=== PATIENT | male | born 1945 | race Caucasian/White ===

== ENCOUNTER → 2016-08-16 | Outpatient (CLI) | payer MEDICARE, BC ==
--- NOTE | 2016-08-17 07:25 | XR ---
EXAMINATION TYPE: XR Hip Complete RT DATE OF EXAM ORDERED: 08/16/2016 3:50 PM HISTORY: [id number] rt hip pain. COMPARISON: None. FINDINGS: A right hip arthroplasty is in place. Prosthetic elements appear in good position. No frac ture, dislocation or other acute abnormality is seen. IMPRESSION: STATUS POST RIGHT HIP ARTHROPLASTY.
== END | disposition home or self-care (01) ==
LOC: RADXRYALE 15:32
PROVIDERS: ATTEND Physician Assistant Medical
DX: M25.551 Pain in right hip (principal); Z96.641 Presence of right artificial hip joint
CPT/HCPCS: 73502

== ENCOUNTER → 2016-11-07 | Outpatient (CLI) | payer MEDICARE, BC ==
--- NOTE | 2016-11-07 11:06 | XR ---
EXAMINATION TYPE: XR Hip Complete RT DATE OF EXAM: 11/07/2016 COMPARISON: 08/16/2016 HISTORY: 71-year-old male with right hip pain TECHNIQUE: 2 views FINDINGS: Images show a right hip total arthroplasty. Both acetabular cup and femoral short stem components of the prosthesis appear well seated without periprosthetic fracture. Similar cortical violation of the medial pelvic sidewall by the inferior acetabular cup screw with tip projecting 1 cm beyond the inner pelvic cortex. Alignment is grossly anatomic. Small heterotopic ossification about the greater troch anter measuring 1 cm. IMPRESSION: Stable exam. No evidence of loosening or periprosthetic fracture. Acetabular cup screw as described ramu sloan.
== END | disposition home or self-care (01) ==
LOC: RADXRYALE 09:49
PROVIDERS: ATTEND Family Medicine
DX: M25.551 Pain in right hip (principal)
CPT/HCPCS: 73502

== ENCOUNTER → 2017-10-01 | Outpatient (CLI) | payer MEDICARE ==
--- NOTE | 2017-10-01 11:31 | XR ---
EXAMINATION TYPE: XR knee complete bilateral DATE OF EXAM: 10/01/2017 CLINICAL HISTORY: Bilateral chronic knee pain TECHNIQUE: Three views of the bilateral knees are obtained. COMPARISON: None. FINDINGS: There is no acute fracture/dislocation evident in either knee. There is fairly symmetric m ild to moderate tricompartment joint space loss with mild spurring patellofemoral compartments bilate rally. The overlying soft tissue appears unremarkable bilaterally. IMPRESSION: As above.
== END | disposition home or self-care (01) ==
LOC: RADXRYALE 10:36
PROVIDERS: ATTEND Family Medicine
DX: M25.561 Pain in right knee (principal); M25.562 Pain in left knee

== ENCOUNTER 2018-11-03 16:50 | Inpatient (IN) | payer MEDICARE ==
[2018-11-03 17:34] LABS: Basophils # (A) 0.1 k/uL (0-0.2); Basophils % (A) 0 %; Eosinophils # (A) 0.3 k/uL (0-0.7); Eosinophils % (A) 2 %; HCT 41.6 % (39.0-53.0); HGB 13.8 gm/dL (13.0-17.5); Lymphocytes # (A) 1.2 k/uL (1.0-4.8); Lymphocytes % (A) 7 %; MCH 30.4 pg (25.0-35.0); MCHC 33.2 g/dL (31.0-37.0); MCV 91.5 fL (80.0-100.0); Mean Platelet Volume 7.4; Monocytes # (A) 0.9 k/uL (0-1.0); Monocytes % (A) 6 %; Neutrophils # (A) 13.7 k/uL (1.3-7.7); Neutrophils % (A) 85 %; Platelet Count 171 k/uL (150-450); RBC 4.54 m/uL (4.30-5.90); RDW 14.8 % (11.5-15.5); WBC 16.2 k/uL (3.8-10.6)
[2018-11-03 17:39] LABS: ALT <6 U/L (21-72); AST 20 U/L (17-59); African American GFR (CKD) 86 (>60 ml/min/1.73 sqM); Albumin 3.9 g/dL (3.5-5.0); Alkaline Phosphatase 66 U/L (38-126); Anion Gap 11 mmol/L; Bilirubin, Delta 0.1 mg/dL (0.0-0.2); Bilirubin,Unconjugated 1.1 mg/dL (0.0-1.1); Blood Urea Nitrogen 36 mg/dL (9-20); Calcium 8.9 mg/dL (8.4-10.2); Carbon Dioxide 24 mmol/L (22-30); Chloride 100 mmol/L (98-107); Glucose 186 mg/dL (74-99); Potassium 4.4 mmol/L (3.5-5.1); Sodium 135 mmol/L (137-145); Total Bilirubin 1.2 mg/dL (0.2-1.3); Total Protein 6.6 g/dL (6.3-8.2)
--- NOTE | 2018-11-03 17:42 | ED ---
Fever HPI - General Chief Complaint: Fever Stated Complaint: Confused, Poss UTI Time Seen by Provider: 11/03/18 17:18 Source: patient Mode of arrival: wheelchair Limitations: altered mental status, physical limitation - History of Present Illness Initial Comments: 73-year-old male being brought in by his caregiver with a chief complaint of generalized weakness and altered mental status. Caregiver states he has a history of Parkinson's and dementia, but today he has become generally weak and it took them 3 hours to get him out of his bed. They took him to his primary care physician's office who did a UA, and diagnosed him with a UTI. They state that he's been complaining of some right flank pain but otherwise has denied any pain. Patient is a history of right-sided weakness that has not worsened recently. He denies any complaints of chest pain or shortness of breath. They deny any falls. - Related Data Home Medications Medication Instructions Recorded Confirmed Apixaban [Eliquis] 5 mg PO BID@0800,1700 11/03/18 11/03/18 Carbidopa/Levodopa [Sinemet CR 1 tab PO TID@0800,1200,1700 11/03/18 11/03/18 50-200 mg] Cetirizine HCl [Zyrtec] 10 mg PO HS@1700 11/03/18 11/03/18 Donepezil [Aricept] 10 mg PO DAILY@1200 11/03/18 11/03/18 Glucosam/Yan-Msm1/C/Calvin/Bosw 1 tab PO DAILY@1200 11/03/18 11/03/18 [Glucosamine-Chondroitin Tablet] Lisinopril-Hctz 20-25 mg 0.5 tab PO DAILY@0800 11/03/18 11/03/18 [Zestoretic 20-25] Multivitamins, Thera [Multivitamin 1 tab PO HS@1700 11/03/18 11/03/18 (formulary)] metFORMIN HCL [Glucophage] 250 mg PO DAILY@0811/03/18 11/03/18 Allergies Allergy/AdvReac Type Severity Reaction Status Date / Time No Known Allergies Allergy Verified 11/03/18 18:03 Review of Systems ROS Statement: Those systems with pertinent positive or pertinent negative responses have been documented in the HPI. Review of Systems Constitutional: Denies fever, chills Eyes: Denies change in vision, Denies pain Ears, nose, mouth, throat: Denies headaches, Denies sore throat Cardiovascular: Denies chest pain. Denies palpitations Respiratory: Denies shortness of breath, Denies cough Gastrointestinal: Denies abdominal pain. Denies nausea, vomiting, diarrhea. Genitourinary: Denies hematuria, positive infections Musculoskeletal: Denies pain, Denies swelling Integumentary: Denies rash Neurological: Denies headache, focal weakness, focal numbness. Positive confu jonna Psychiatric: Denies anxiety, Denies depression Hematologic/Lymphatic: Denies easy bleeding or bruising ROS Other: All systems not noted in ROS Statement are negative. Past Medical History Past Medical History: CVA/TIA, Dementia, Diabetes Mellitus, Hypertension Additional Past Medical History / Comment(s): parkinsons History of Any Multi-Drug Resistant Organisms: None Reported Past Surgical History: Joint Replacement, Pacemaker Additional Past Surgical History / Comment(s): right hip Past Psychological History: No Psychological Hx Reported Smoking Status: Former smoker Past Alcohol Use History: None Reported Past Drug Use History: None Reported General Exam - General Exam Comments Initial Comments: General: Awake, alert, No acute Distress HENT: Normocephalic. Atraumatic Eyes: PERRL. EOMI. No scleral icterus. No injected conjunctiva Neck: Full ROM Chest/Lungs: Clear to auscultation bilaterally. No wheezing, rhonchi, or rales Cardiac: Regular rate, rhythm. No murmurs or rubs Abdomen/GI: Soft, nontender, nondistended. No rebound, guarding, or rigidity. Musculoskeletal: Full ROM Skin: Warm, dry, intact Neurologic: A/Ox2. Moving all 4 extremities. Right sided weakness (chronic.) Unable to assess gait. Limitations: altered mental status, physical limitation Course Vital Signs 11/03/18 16:55 Temperature 99.2 F Pulse Rate 60 Respiratory 18 Rate Blood Pressure 120/63 O2 Sat by Pulse 97 Oximetry Medical Decision Making - Medical Decision Making 73-year-old male presenting with altered mental status and possible UTI. Initial exam the patient is awake, alert, no acute distress. VSS. Patient found to have a leukocytosis and a UTI. A culture was sent and he was given Rocephin. A CT abdomen and pelvis showed fat stranding around bilateral kidneys suggesting pyelonephritis. Patient also found to have a lactic acidosis. He was given a 1 L IV fluid bolus and placed on maintenance fluid. The remainder of his laboratory workup unremarkable. I spoke with Dr. Domínguez who is agreeable to admission. I updated the caregiver. Patient eats normal foods but does require assistance. EKG shows an atrial paced rhythm at a rate of 60 bpm. - Lab Data Result diagrams: 11/03/18 17:20 11/03/18 17:20 Lab Results 11/03/18 11/03/18 11/03/18 Range/Units 17:20 17:20 17:20 WBC 16.2 H (3.8-10.6) k/uL RBC 4.54 (4.30-5.90) m/uL Hgb 13.8 (13.0-17.5) gm/dL Hct 41.6 (39.0-53.0) % MCV 91.5 (80.0-100.0) fL MCH 30.4 (25.0-35.0) pg MCHC 33.2 (31.0-37.0) g/dL RDW 14.8 (11.5-15.5) % Plt Count 171 (150-450) k/uL Neutrophils % 85 % Lymphocytes % 7 % Monocytes % 6 % Eosinophils % 2 % Basophils % 0 % Neutrophils # 13.7 H (1.3-7.7) k/uL Lymphocytes # 1.2 (1.0-4.8) k/uL Monocytes # 0.9 (0-1.0) k/uL Eosinophils # 0.3 (0-0.7) k/uL Basophils # 0.1 (0-0.2) k/uL Sodium 135 L (137-145) mmol/L Potassium 4.4 (3.5-5.1) mmol/L Chloride 100 (98-107) mmol/L Carbon Dioxide 24 (22-30) mmol/L Anion Gap 11 mmol/L BUN 36 H (9-20) mg/dL Creatinine 0.99 (0.66-1.25) mg/dL Est GFR (CKD-EPI)AfAm 86 (>60 ml/min/1.73 sqM) Est GFR (CKD-EPI)NonAf 74 (>60 ml/min/1.73 sqM) Glucose 186 H (74-99) mg/dL Plasma Lactic Acid Hever (0.7-2.0) mmol/L Calcium 8.9 (8.4-10.2) mg/dL Total Bilirubin 1.2 (0.2-1.3) mg/dL Conjugated Bilirubin 0.0 (0.0-0.3) mg/dL Unconjugated Bilirubin 1.1 (0.0-1.1) mg/dL Delta Bilirubin 0.1 (0.0-0.2) mg/dL AST 20 (17-59) U/L ALT <6 L (21-72) U/L Alkaline Phosphatase 66 (38-126) U/L Troponin I (0.000-0.034) ng/mL NT-Pro-B Natriuret Pep 545 pg/mL Total Protein 6.6 (6.3-8.2) g/dL Albumin 3.9 (3.5-5.0) g/dL Lipase 102 (23-300) U/L Urine Color Urine Appearance (Clear) Urine pH (5.0-8.0) Ur Specific Lolo (1.001-1.035) Urine Protein (Negative) Urine Glucose (UA) (Negative) Urine Ketones (Negative) Urine Blood (Negative) Urine Nitrite (Negative) Urine Bilirubin (Negative) Urine Urobilinogen (<2.0) mg/dL Ur Leukocyte Esterase (Negative) Urine WBC (0-5) /hpf Urine Bacteria (None) /hpf Urine Mucus (None) /hpf 11/03/18 11/03/18 11/03/18 Range/Units 17:20 17:20 18:51 WBC (3.8-10.6) k/uL RBC (4.30-5.90) m/uL Hgb (13.0-17.5) gm/dL Hct (39.0-53.0) % MCV (80.0-100.0) fL MCH (25.0-35.0) pg MCHC (31.0-37.0) g/dL RDW (11.5-15.5) % Plt Count (150-450) k/uL Neutrophils % % Lymphocytes % % Monocytes % % Eosinophils % % Basophils % % Neutrophils # (1.3-7.7) k/uL Lymphocytes # (1.0-4.8) k/uL Monocytes # (0-1.0) k/uL Eosinophils # (0-0.7) k/uL Basophils # (0-0.2) k/uL Sodium (137-145) mmol/L Potassium (3.5-5.1) mmol/L Chloride (98-107) mmol/L Carbon Dioxide (22-30) mmol/L Anion Gap mmol/L BUN (9-20) mg/dL Creatinine (0.66-1.25) mg/dL Est GFR (CKD-EPI)AfAm (>60 ml/min/1.73 sqM) Est GFR (CKD-EPI)NonAf (>60 ml/min/1.73 sqM) Glucose (74-99) mg/dL Plasma Lactic Acid Hever 2.3 H* (0.7-2.0) mmol/L Calcium (8.4-10.2) mg/dL Total Bilirubin (0.2-1.3) mg/dL Conjugated Bilirubin (0.0-0.3) mg/dL Unconjugated Bilirubin (0.0-1.1) mg/dL Delta Bilirubin (0.0-0.2) mg/dL AST (17-59) U/L ALT (21-72) U/L Alkaline Phosphatase (38-126) U/L Troponin I <0.012 (0.000-0.034) ng/mL NT-Pro-B Natriuret Pep pg/mL Total Protein (6.3-8.2) g/dL Albumin (3.5-5.0) g/dL Lipase (23-300) U/L Urine Color Yellow Urine Appearance Clear (Clear) Urine pH 5.0 (5.0-8.0) Ur Specific Lolo 1.020 (1.001-1.035) Urine Protein Negative (Negative) Urine Glucose (UA) Negative (Negative) Urine Ketones Negative (Negative) Urine Blood Trace H (Negative) Urine Nitrite Positive (Negative) Urine Bilirubin Negative (Negative) Urine Urobilinogen <2.0 (<2.0) mg/dL Ur Leukocyte Esterase Trace H (Negative) Urine WBC 1 (0-5) /hpf Urine Bacteria Many H (None) /hpf Urine Mucus Moderate H (None) /hpf Disposition Clinical Impression: UTI (urinary tract infection), Pyelonephritis, Lactic acid acidosis Disposition: ADMITTED IP TO THIS HOSP Is patient prescribed a controlled substance at d/c from ED?: No Referrals: Rizwan Farfan DO [Primary Care Provider] - 1-2 days Decision to Admit Reason: Admit from EC Decision Date: 11/03/18 Decision Time: 20:39
[2018-11-03] MEDS ORDERED: SODIUM CHLORIDE 0.9% 1,000 ML IV ONE (18:26)
--- NOTE | 2018-11-03 18:31 | CT ---
EXAMINATION TYPE: CT brain wo con DATE OF EXAM: 11/03/2018 COMPARISON: 07/04/2015 HISTORY: weakness, confusion CT DLP: 1139.4 mGycm Automated exposure control for dose reduction was used. FINDINGS: There is cerebral atrophy. There is no mass effect nor midline shift. There is no sign of intracrania l hemorrhage. Calvarium is intact. IMPRESSION: CEREBRAL ATROPHY. NO ACUTE INTRACRANIAL ABNORMALITY. NO CHANGE.
--- NOTE | 2018-11-03 18:34 | XR ---
EXAMINATION TYPE: XR chest 2V DATE OF EXAM: 11/03/2018 COMPARISON: NONE HISTORY: Confusion TECHNIQUE: Frontal and lateral views of the chest are obtained. FINDINGS: There is no heart failure nor confluent pneumonic infiltrate. Costophrenic angles are marion r. There is a left axillary pacemaker. There are chest leads. There is no pleural effusion. IMPRESSION: No active cardiopulmonary disease.
[2018-11-03 19:10] LABS: Appearance,Urine Clear (Clear); Bacteria,Urine Many /hpf; Bilirubin,Urine Negative (Negative); Blood,Urine Trace (Negative); Color,Urine Yellow; Glucose,Urine (UA) Negative (Negative); Ketones,Urine Negative (Negative); Leukocyte Esterase,Urine Trace (Negative); Mucus,Urine Moderate /hpf; Nitrite,Urine Positive (Negative); Protein,Urine Negative (Negative); Urobilinogen,Urine <2.0 mg/dL (<2.0)
--- NOTE | 2018-11-03 20:31 | CT ---
EXAMINATION TYPE: CT abdomen pelvis w con DATE OF EXAM: 11/03/2018 COMPARISON: HISTORY: weakness, possible UTI CT DLP: 1455.8 mGycm Automated exposure control for dose reduction was used. TECHNIQUE: Helical acquisition of images was performed from the lung bases through the pelvis. CONTRAST: Performed without Oral Contrast and with IV Contrast, patient injected with 100 mL of Isovue 300. FINDINGS: There is subsegmental atelectasis at the posterior lung bases. There is no pleural effusion. Liver sh ows no focal defect. Gallbladder appears normal. Bile ducts are not dilated. Spleen appears normal. T here is no pancreatic mass. There is no adrenal mass. Kidneys show satisfactory contrast opacification. There is no hydronephrosi s. There is no retroperitoneal adenopathy. Ureters are not dilated. Bladder distends smoothly. There is metal artifact from bilateral hip prosthesis. There is no free fluid in the pelvis. There is no in guinal hernia. There is no evidence of a bowel obstruction. There is no mesenteric edema. There is no ascites. There is mild lumbar dextroscoliosis. There are spondylotic changes with vacuum disc and sp ur formation. There is mild fat stranding around both kidneys. There are bilateral small renal parape lvic cysts. IMPRESSION: NO EVIDENCE OF RENAL MASS OR OBSTRUCTION. BILATERAL FAT STRANDING AROUND THE KIDNEYS COULD RELATE TO PREVIOUS EPISODE OF OBSTRUCTION OR INFLAMMATORY PROCESS. No sign of acute abdomen and pelvis.
[2018-11-03] MEDS ORDERED: ONDANSETRON 4 MG/2 ML VIAL IVP PRN (21:11)
[2018-11-03] MEDS ORDERED: NALOXONE 0.4 MG/ML 1 ML VIAL IV PRN (21:11)
[2018-11-03] MEDS ORDERED: ACETAMINOPHEN TAB 325 MG TAB PO PRN (21:11)
[2018-11-03] MEDS: SODIUM CHLORIDE 0.9% 1,000 ML IV SCH (21:18)
[2018-11-04] MEDS: APIXABAN 5 MG TAB PO SCH ×3 (05:00→16:31)
[2018-11-04 07:35] LABS: Glucose,Whole Blood 126 mg/dL (75-99)
[2018-11-04] MEDS ORDERED: LISINOPRIL-HCTZ 20-25 MG 1 EACH TAB PO SCH (08:00)
[2018-11-04] MEDS ORDERED: metFORMIN 500 MG TAB PO SCH (08:00)
[2018-11-04 08:46] LABS: African American GFR (CKD) >90 (>60 ml/min/1.73 sqM); Anion Gap 7 mmol/L; Blood Urea Nitrogen 24 mg/dL (9-20); Calcium 8.5 mg/dL (8.4-10.2); Carbon Dioxide 27 mmol/L (22-30); Chloride 104 mmol/L (98-107); Glucose 114 mg/dL (74-99); Potassium 3.8 mmol/L (3.5-5.1); Sodium 138 mmol/L (137-145)
[2018-11-04 08:48] LABS: Basophils % (A) 0 %; Eosinophils # (A) 0.1 k/uL (0-0.7); Eosinophils % (A) 1 %; HGB 12.8 gm/dL (13.0-17.5); Lymphocytes # (A) 1.3 k/uL (1.0-4.8); Lymphocytes % (A) 12 %; MCH 30.2 pg (25.0-35.0); MCHC 33.8 g/dL (31.0-37.0); MCV 89.4 fL (80.0-100.0); Mean Platelet Volume 7.1; Monocytes # (A) 0.8 k/uL (0-1.0); Monocytes % (A) 7 %; Neutrophils # (A) 8.5 k/uL (1.3-7.7); Neutrophils % (A) 79 %; Platelet Count 150 k/uL (150-450); RBC 4.25 m/uL (4.30-5.90); RDW 13.5 % (11.5-15.5); WBC 10.7 k/uL (3.8-10.6)
[2018-11-04] MEDS: CARBIDOPA-LEVODOPA ER 50-200MG 1 EACH TABLET.ER PO SCH ×3 (09:03→16:31)
--- NOTE | 2018-11-04 11:12 | P.HPIM ---
History of Present Illness 68-year-old pleasant male came in with complaints of altered status generalized weakness much worse from my last week. Patient appears to have a advanced Parkinson's and parkinsonian dementia patient does have generalized weakness from that patient has good days and bad days which is expected from Parkinson and parkinsonian dementia. Since he is quite weak the caregivers believe he may have been dehydrated and the patient was brought to the ER and PCPs office year was done not very impressive for urinary tract infection patient is almost alert oriented 3 but quite weak does have masked face from Parkinson's very slow in a nswering questions. Patient appears to be clinically dehydrated and serum creatinine of 0.99 with elevated BUN of 35 patient will be continued on IV fluids patient urine is bit abnormal doesn't have any UTI symptoms does have leukocytosis not significantly impressive for urinary tract infection patient had a CAT scan which showed some inflammatory changes from a past kidney stone with bilateral contrast standing around the kidneys. Patient will be can you done antibiotic consisting these inflammatory changes and some minimal abnormality in the urine although suspicion for urinary tract infection is significantly low. Patient does have lactic acidosis which I believe is secondary to metformin. Patient is on DONOVAN inhibitor and diuretic combination pill which will be discontinued patient may go back on DONOVAN inhibitor probably diuretic is not a good idea considering his dementia patient will get dehydrated. She is on carbidopa levodopa had significant side effects from these medications. I had lengthy discussion with the caregiver. PT and occupational therapy were consulted that and the caregivers are hoping that he'll go back to his previous home environment with the home physical therapy and occupational therapy help. Review of Systems REVIEW OF SYSTEMS: CONSTITUTIONAL: No fever, no malaise, no fatigue. HEENT: No recent visual problems or hearing problems. Denied any sore throat. CARDIOVASCULAR: No chest pain, orthopnea, PND, no palpitations, no syncope. PULMONARY: No shortness of breath, no cough, no hemoptysis. GASTROINTESTINAL: No diarrhea, no nausea, no vomiting, no abdominal pain. NEUROLOGICAL: No headaches, no weakness, no numbness. HEMATOLOGICAL: Denies any bleeding or petechiae. GENITOURINARY: Denies any burning micturition, frequency, or urgency. MUSCULOSKELETAL/RHEUMATOLOGICAL: Denies any joint pain, swelling, or any muscle pain. ENDOCRINE: Denies any polyuria or polydipsia. The rest of the 14-point review of systems is negative. Past Medical History Past Medical History: CVA/TIA, Dementia, Diabetes Mellitus, Hypertension Additional Past Medical History / Comment(s): parkinsons History of Any Multi-Drug Resistant Organisms: None Reported Past Surgical History: Joint Replacement, Pacemaker Additional Past Surgical History / Comment(s): right hip Past Psychological History: No Psychological Hx Reported Smoking Status: Former smoker Past Alcohol Use History: None Reported Past Drug Use History: None Reported Medications and Allergies Home Medications Medication Instructions Recorded Confirmed Type Apixaban [Eliquis] 5 mg PO BID@0800,1700 11/03/18 11/03/18 History Carbidopa/Levodopa [Sinemet CR 1 tab PO TID@0800,1200,1700 11/03/18 11/03/18 History 50-200 mg] Cetirizine HCl [Zyrtec] 10 mg PO HS@1700 11/03/18 11/03/18 History Donepezil [Aricept] 10 mg PO DAILY@1200 11/03/18 11/03/18 History Glucosam/Yan-Msm1/C/Calvin/Bosw 1 tab PO DAILY@1200 11/03/18 11/03/18 History [Glucosamine-Chondroitin Tablet] Multivitamins, Thera [Multivitamin 1 tab PO HS@1700 11/03/18 11/03/18 History (formulary)] Lisinopril [Prinivil] 10 mg PO DAILY #30 tab 11/04/18 Rx Allergies Allergy/AdvReac Type Severity Reaction Status Date / Time No Known Allergies Allergy Verified 11/03/18 18:03 Physical Exam Vitals: Vital Signs Temp Pulse Pulse Resp BP BP Pulse Ox 11/04/18 07:00 97.5 F L 60 16 115/67 96 11/04/18 03:08 98.6 F 60 16 122/73 93 L 11/03/18 23:00 98.8 F 60 18 122/67 94 L 11/03/18 22:34 88 20 142/78 11/03/18 21:20 60 4 L 134/68 11/03/18 21:10 60 23 134/68 11/03/18 21:00 68 19 136/79 11/03/18 20:50 60 20 136/79 11/03/18 20:40 34 H 136/79 11/03/18 20:30 13 145/72 97 11/03/18 20:20 60 20 145/72 97 11/03/18 20:10 145/72 11/03/18 20:00 60 20 145/69 99 11/03/18 19:50 60 13 145/69 97 11/03/18 19:40 65 20 145/69 98 11/03/18 19:30 68 20 140/68 97 11/03/18 19:20 60 20 140/68 99 11/03/18 19:10 22 140/68 99 11/03/18 19:00 60 16 124/64 100 11/03/18 18:50 61 13 124/64 99 11/03/18 18:40 59 L 21 124/64 99 11/03/18 18:30 60 21 115/58 97 11/03/18 18:20 115/58 11/03/18 18:10 115/58 11/03/18 18:00 60 23 119/62 11/03/18 17:50 60 20 119/62 11/03/18 17:40 60 21 119/62 11/03/18 17:30 60 18 135/64 96 11/03/18 17:20 60 21 135/64 96 11/03/18 17:12 99 11/03/18 16:55 99.2 F 60 18 120/63 97 Intake and Output 11/03/18 11/04/18 11/04/18 22:59 06:59 14:59 Output Total 100 Balance -100 Output: Urine 100 Straight 100 Other: # Voids 1 1 Weight 100.244 kg PHYSICAL EXAMINATION: GENERAL: The patient is alert and oriented x3, not in any acute distress. Obese significant generalized weakness mask like face very slow in answering qu estions from Parkinson's HEENT: Pupils are round and equally reacting to light. EOMI. No scleral icterus. No conjunctival pallor. Normocephalic, atraumatic. No pharyngeal erythema. No thyromegaly. CARDIOVASCULAR: S1 and S2 present. No murmurs, rubs, or gallops. PULMONARY: Chest is clear to auscultation, no wheezing or crackles. ABDOMEN: Soft, nontender, nondistended, normoactive bowel sounds. No palpable organomegaly. MUSCULOSKELETAL: No joint swelling or deformity. EXTREMITIES: No cyanosis, clubbing, or pedal edema. NEUROLOGICAL: Gross neurological examination did not reveal any focal deficits. SKIN: No rashes. Results CBC & Chem 7: 11/04/18 07:27 11/04/18 07:27 Labs: Abnormal Lab Results - Last 24 Hours (Table) 11/03/18 11/03/18 11/03/18 Range/Units 17:20 17:20 17:20 WBC 16.2 H (3.8-10.6) k/uL RBC (4.30-5.90) m/uL Hgb (13.0-17.5) gm/dL Hct (39.0-53.0) % Neutrophils # 13.7 H (1.3-7.7) k/uL Sodium 135 L (137-145) mmol/L BUN 36 H (9-20) mg/dL Glucose 186 H (74-99) mg/dL POC Glucose (mg/dL) (75-99) mg/dL Plasma Lactic Acid Hever 2.3 H* (0.7-2.0) mmol/L ALT <6 L (21-72) U/L Urine Blood (Negative) Ur Leukocyte Esterase (Negative) Urine Bacteria (None) /hpf Urine Mucus (None) /hpf 11/03/18 11/04/18 11/04/18 Range/Units 18:51 07:27 07:27 WBC 10.7 H (3.8-10.6) k/uL RBC 4.25 L (4.30-5.90) m/uL Hgb 12.8 L (13.0-17.5) gm/dL Hct 38.0 L (39.0-53.0) % Neutrophils # 8.5 H (1.3-7.7) k/uL Sodium (137-145) mmol/L BUN 24 H (9-20) mg/dL Glucose 114 H (74-99) mg/dL POC Glucose (mg/dL) (75-99) mg/dL Plasma Lactic Acid Hever (0.7-2.0) mmol/L ALT (21-72) U/L Urine Blood Trace H (Negative) Ur Leukocyte Esterase Trace H (Negative) Urine Bacteria Many H (None) /hpf Urine Mucus Moderate H (None) /hpf 11/04/18 Range/Units 07:34 WBC (3.8-10.6) k/uL RBC (4.30-5.90) m/uL Hgb (13.0-17.5) gm/dL Hct (39.0-53.0) % Neutrophils # (1.3-7.7) k/uL Sodium (137-145) mmol/L BUN (9-20) mg/dL Glucose (74-99) mg/dL POC Glucose (mg/dL) 126 H (75-99) mg/dL Plasma Lactic Acid Hever (0.7-2.0) mmol/L ALT (21-72) U/L Urine Blood (Negative) Ur Leukocyte Esterase (Negative) Urine Bacteria (None) /hpf Urine Mucus (None) /hpf Assessment and Plan Plan: -Altered mental status I believe may be related to embolic encephalopathy from dehydration or may be from his parkinsonian dementia itself possibility of urinary tract infection is low and patient will be continued on antibiotics we'll complete total of 5 day therapy consisting inflammatory changes around the kidneys on the CAT scan which is most probably from the past kidney stone. -Parkinsonian dementia abuse but dementia moderate: Continue with Sinemet -Parkinson's will discuss with neurology regarding adding any other parkinsonian medications will help his symptoms of weakness. Although patient doesn't have any significant tremor at this time. -Type 2 diabetes mellitus will obtain hemoglobin A1c because of lactic acidosis metformin will be discontinued patient will continued on IV fluids -Mild acute renal failure from intravascular volume depletion IV fluids as mentioned above -Hypertension hold off on blood pressure medications because of dehydration as mentioned above. -Mild hyponatremia hypovolemic hyponatremia improved now -Severity in the past -She is already on anti-coagulation with Eliquis will not need any other DVT prophylaxis
[2018-11-04] MEDS ORDERED: NON-FORMULARY DRUG (Glucosam/Chon-Msm1/C/Mang/Bosw [Glucosamine-Chondroitin Tablet] 1 TAB) PO SCH (12:00)
[2018-11-04 12:14] LABS: Glucose,Whole Blood 114 mg/dL (75-99)
[2018-11-04] MEDS: MULTIVITAMINS, THERA 1 EACH TAB PO SCH (16:31)
[2018-11-04] MEDS: LORATADINE 10 MG TAB PO SCH (16:31)
[2018-11-04 17:16] LABS: Glucose,Whole Blood 319 mg/dL (75-99)
[2018-11-04 17:34] LABS: Hemoglobin A1C 5.9 % (4.0-6.0)
[2018-11-04] MEDS ORDERED: LORazepam 2 MG/ML INJ IV PRN (21:03)
[2018-11-04 21:14] LABS: Glucose,Whole Blood 100 mg/dL (75-99)
[2018-11-04] MEDS: INSULIN ASPART (NovoLOG) 100 UNIT/ML VIAL SQ SCH (22:06)
[2018-11-05] MEDS: SODIUM CHLORIDE 0.9% 1,000 ML IV SCH ×3 (06:13→14:29)
[2018-11-05 07:11] LABS: Glucose,Whole Blood 138 mg/dL (75-99)
[2018-11-05] MEDS: INSULIN ASPART (NovoLOG) 100 UNIT/ML VIAL SQ SCH ×4 (07:44→21:27)
[2018-11-05] MEDS: CARBIDOPA-LEVODOPA ER 50-200MG 1 EACH TABLET.ER PO SCH ×3 (07:46→17:48)
[2018-11-05] MEDS: APIXABAN 5 MG TAB PO SCH ×2 (07:47→17:49)
[2018-11-05 08:45] LABS: HCT 42.1 % (39.0-53.0); HGB 13.6 gm/dL (13.0-17.5); MCH 30.1 pg (25.0-35.0); MCHC 32.4 g/dL (31.0-37.0); MCV 92.8 fL (80.0-100.0); Mean Platelet Volume 7.8; Platelet Count 154 k/uL (150-450); RBC 4.54 m/uL (4.30-5.90); RDW 15.1 % (11.5-15.5); WBC 9.3 k/uL (3.8-10.6)
[2018-11-05 08:48] LABS: African American GFR (CKD) >90 (>60 ml/min/1.73 sqM); Anion Gap 9 mmol/L; Blood Urea Nitrogen 21 mg/dL (9-20); Calcium 8.5 mg/dL (8.4-10.2); Carbon Dioxide 24 mmol/L (22-30); Chloride 105 mmol/L (98-107); Glucose 119 mg/dL (74-99); Potassium 3.8 mmol/L (3.5-5.1); Sodium 138 mmol/L (137-145)
[2018-11-05 11:28] LABS: Glucose,Whole Blood 103 mg/dL (75-99)
--- NOTE | 2018-11-05 13:48 | P.PN ---
Subjective Progress Note Date: 11/05/18 Principal diagnosis: This is a 73-year-old male who comes with altered mental status and generalized weakness. Patient appears to have advanced Parkinson's and parkinsonian dementi a. Patient clinically presented with signs of dehydration. PT and OT were consulted and working with the patient. Patient became a little agitated and anxious this morning and was given a one-time dose of Ativan and is sleeping at the time that physical therapy had presented. Per physical therapy note they will follow up again this afternoon to work with the patient. Spoke with the caregiver Guerita at length today about possible discharge as we are waiting for physical therapy recommendations at this time as they want the patient to have in-home physical therapy and occupational therapy. Patient is sleeping but arousable. Patient appears to be in no acute distress at this time. Patient is denying any shortness of breath or chest pain at this time. Patient is eating and drinking okay and tolerating diet per nursing staff. We'll continue to monitor closely. BUN is 21, creatinine is 0.94. Objective - Vital Signs Vital signs: Vital Signs Temp 97.8 F 11/05/18 07:00 Pulse 64 11/05/18 08:02 Resp 17 11/05/18 08:02 BP 160/75 11/05/18 07:00 Pulse Ox 96 11/05/18 07:00 Intake & Output 11/04/18 11/05/18 11/05/18 18:59 06:59 18:59 Other: # Voids 4 6 - Exam Gen: This is a 73-year-old male lying in bed sleeping in no acute distress. Blood pressure is 160/75, pulse is 64, respirations are 17, temp is 97.8F, oxygen saturation is 96% on room air. HEENT: Head is atraumatic, normocephalic. Pupils equal, round. Sclerae is anicteric. NECK: Supple. No JVD. No lymphadenopathy. No thyromegaly. LUNGS: Clear to auscultation. No wheezes or rhonchi. No intercostal retractions. HEART: Regular rate and rhythm. No murmur. ABDOMEN: Soft. Bowel sounds are present. Obese. No masses. No tenderness. EXTREMITIES: No pedal edema. No calf tenderness. NEUROLOGICAL: Patient is awake, alert and oriented x3 with slow responses. Cranial nerves 2 through 12 are grossly intact. - Labs CBC & Chem 7: 11/05/18 07:39 11/05/18 07:39 Labs: Abnormal Lab Results - Last 24 Hours (Table) 11/04/18 11/04/18 11/05/18 Range/Units 17:05 21:03 07:00 BUN (9-20) mg/dL Glucose (74-99) mg/dL POC Glucose (mg/dL) 319 H 100 H 138 H (75-99) mg/dL 11/05/18 11/05/18 Range/Units 07:39 11:16 BUN 21 H (9-20) mg/dL Glucose 119 H (74-99) mg/dL POC Glucose (mg/dL) 103 H (75-99) mg/dL Assessment and Plan Assessment: Altered mental status: May be related to metabolic encephalopathy from dehydration or may be from his parkinsonian dementia itself. Possibility of urinary tract infection is low. The patient will be continued on antibiotics and will complete a five-day course due to inflammatory changes around the kidneys on the CAT scan which is most likely from a kidney stone in the past. Parkinsonian dementia moderate: We'll continue with Sinemet Parkinson's: Will discuss with neurology regarding adding any other Parkinson's medications that may help his symptoms of weakness, although patient doesn't have any significant tremors at this time. Will follow up with neurology on an outpatient basis Type 2 diabetes mellitus: Hemoglobin A1c is currently 5.9. We will discontinue metformin. Will monitor electrolytes. We'll continue to monitor blood sugars as well before meals and at bedtime. Mild acute renal failure from intravascular volume depletion. Patient is dr tillman. We'll monitor intake and output as well as labs Hypertension: Blood pressure medications being held because of dehydration. Will monitor vital signs closely. Patient will go home on lisinopril only without the hydrochlorothiazide additive Mild hyponatremia hypovolemic: Improved now. Sodium is 138, potassium is 3.8 DVT prophylaxis: Patient is currently on anticoagulation with Eliquis will continue. Recommendations and discussion: Recommend continue current medication management and symptomatic treatment. Will continue to monitor closely. Will await physical therapy recommendations as the patient was drowsy due to Ativan at the time of their visit. Guarded prognosis. Further recommendations to follow. Possible discharge to home with home care in 24-48 hours. Discussed with caregivers Guerita at length and they have contacted residential Home care to receive services in the home upon discharge. Will coordinate with case management.
[2018-11-05 17:11] LABS: Glucose,Whole Blood 108 mg/dL (75-99)
[2018-11-05] MEDS: MULTIVITAMINS, THERA 1 EACH TAB PO SCH (17:48)
[2018-11-05] MEDS: LORATADINE 10 MG TAB PO SCH (17:49)
[2018-11-05 19:55] VITALS: RESP 16
[2018-11-05] MEDS ORDERED: QUEtiapine 25 MG TAB PO SCH (21:00)
[2018-11-05 21:31] LABS: Glucose,Whole Blood 152 mg/dL (75-99)
[2018-11-06] MEDS: SODIUM CHLORIDE 0.9% 1,000 ML IV SCH (02:50)
[2018-11-06 07:13] LABS: Glucose,Whole Blood 113 mg/dL (75-99)
[2018-11-06 07:47] VITALS: BP 145/78; PULSE 59; TEMP 98.4
[2018-11-06] MEDS: INSULIN ASPART (NovoLOG) 100 UNIT/ML VIAL SQ SCH ×2 (09:29→12:39)
[2018-11-06] MEDS: APIXABAN 5 MG TAB PO SCH (09:40)
[2018-11-06] MEDS: CARBIDOPA-LEVODOPA ER 50-200MG 1 EACH TABLET.ER PO SCH ×2 (09:41→12:43)
--- NOTE | 2018-11-06 10:36 | P.DS ---
Providers Date of admission: 11/03/18 21:11 Expected date of discharge: 11/06/18 Attending physician: Ruperto Domínguez MD Primary care physician: [facility] Course: Final diagnosis Altered mental status: She may be related to metabolic encephalopathy from dehydration may be from his parkinsonian dementia Urinary tract infection: Patient was on IV antibiotics and will resume oral antibiotics of Ceftin for 3 days parkinsonian dementia moderate: Will continue on Sinemet Parkinson's: Follow-up with neurology on an outpatient basis Diabetes mellitus type 2: Hemoglobin A1c is 5.9 Acute renal failure from intravascular volume depletion Hypertension: Blood pressure medications have been changed patient will go home on lisinopril 10 mg daily Mild hyponatremia hypovolemic: Resolved DVT prophylaxis: Patient is currently on Eliquis and will continue Discharge disposition Patient is being discharged in stable condition with guarded diagnosis to home. [facility]idential Home[facility] will follow-up with the patient per caregiver's diana mmendations. Physical therapy and outpatient therapy will be following. History of present illness This is a 73-year-old male that presents to the hospital and admitted for altered mental status with Parkinson's and Parkinsonian dementia that has been worsening per caregiver. Patient was also having difficulty getting out of bed, was lethargic, and fatigued per caregiver. Patient denies any shortness of breath, chest pain, or palpitations at this time. Patient denies any nausea or vomiting at this time patient is tolerating diet with assistance. Patient worked with physical therapy today and was able to get up into the chair with minimal assistance. Per caregivers patient will be going home with residential Homecare services and physical therapy will be following the patient as well. Caregivers requesting a wheelchair for the home due to patient's weakness and advancing Parkinson's. Prescription was provided. Patient remains afebrile. Patient is currently stable and much improved. Patient will continue oral antibiotics for the course of 3 days. On exam vital signs are stable. Blood pressure is 145/78, pulse is 59, respirations are 16, temp is 98.4F, oxygen saturations 96% on room air. Cardio S1 and S2 are normal. Respiratory system is clear to auscultation with no wheezes or rhonchi is noted. Abdomen is soft and non-tender. Nervous system shows no focal deficits. Patient does have a history of Parkinson's with no tremors noted at this time. Please refer to medication reconciliation sheet for a list of medications. Patient Condition at Discharge: Fair Plan - Discharge Summary Discharge Rx Participant: No New Discharge Prescriptions: New Lisinopril [Prinivil] 10 mg PO DAILY #30 tab QUEtiapine [SEROquel] 25 mg PO HS PRN #30 tab PRN Reason: Agitation Cefuroxime Axetil [Ceftin] 500 mg PO BID 3 Days #6 tab Continue Multivitamins, Thera [Multivitamin (formulary)] 1 tab PO HS@1700 Glucosam/Yan-Msm1/C/Calvin/Bosw [Glucosamine-Chondroitin Tablet] 1 tab PO DAILY@1200 Cetirizine HCl [Zyrtec] 10 mg PO HS@1700 Apixaban [Eliquis] 5 mg PO BID@0800,1700 Donepezil [Aricept] 10 mg PO DAILY@1200 Carbidopa/Levodopa [Sinemet CR 50-200 mg] 1 tab PO TID@0800,1200,1700 Discontinued metFORMIN HCL [Glucophage] 250 mg PO DAILY@0800 Lisinopril-Hctz 20-25 mg [Zestoretic 20-25] 0.5 tab PO DAILY@0800 Discharge Medication List Apixaban [Eliquis] 5 mg PO BID@0800,1700 11/03/18 [History] Carbidopa/Levodopa [Sinemet CR 50-200 mg] 1 tab PO TID@0800,1200,1700 11/03/18 [History] Cetirizine HCl [Zyrtec] 10 mg PO HS@1700 11/03/18 [History] Donepezil [Aricept] 10 mg PO DAILY@1200 11/03/18 [History] Glucosam/Yan-Msm1/C/Calvin/Bosw [Glucosamine-Chondroitin Tablet] 1 tab PO DAILY@1200 11/03/18 [History] Multivitamins, Thera [Multivitamin (formulary)] 1 tab PO HS@1700 11/03/18 [History] Lisinopril [Prinivil] 10 mg PO DAILY #30 tab 11/04/18 [Rx] Cefuroxime Axetil [Ceftin] 500 mg PO BID 3 Days #6 tab 11/06/18 [Rx] QUEtiapine [SEROquel] 25 mg PO HS PRN #30 tab 11/06/18 [Rx] Follow up Appointment(s)/Referral(s): [facility]idential [facility] [NON-STAFF] - Rizwan Farfan DO [Primary Care Provider] - 3 Days Activity/Diet/Wound Care/Special Instructions: Activity limited until follow, may advance as tolerated Continue current diet Patient to continue oral antibiotics for 3 days Seroquel given on a PRN (as needed) basis PT/OT to work with the patient at home. Residential Home care will follow-up Discharge Disposition: HOME WITH HOME HEALTH SERVICES
[2018-11-06 11:52] LABS: Glucose,Whole Blood 94 mg/dL (75-99)
== END 2018-11-06 13:00 | disposition home health service (06) | DRG 640 ==
LOC: EC 16:50 → 4SSUR 21:11
PROVIDERS: ADMIT Internal Medicine; ATTEND Internal Medicine
DX: E86.0 Dehydration (principal); G93.41 Metabolic encephalopathy; N39.0 Urinary tract infection, site not specified; N17.9 Acute kidney failure, unspecified; E87.1 Hypo-osmolality and hyponatremia; E87.2 Acidosis; E11.9 Type 2 diabetes mellitus without complications; E86.1 Hypovolemia; F02.80 Dementia in other diseases classified elsewhere, unspecified severity, without behavioral disturbance, psychotic disturbance, mood disturbance, and anxiety; G20 Parkinson's disease; I10 Essential (primary) hypertension; N20.0 Calculus of kidney; Z79.01 Long term (current) use of anticoagulants; Z79.899 Other long term (current) drug therapy; Z86.73 Personal history of transient ischemic attack (TIA), and cerebral infarction without residual deficits; Z87.442 Personal history of urinary calculi; Z87.891 Personal history of nicotine dependence; Z79.84 Long term (current) use of oral hypoglycemic drugs
CPT/HCPCS: 36415; 51701; 70450; 71046; 74177; 80048; 80076; 81001; 83036; 83605; 83690; 83880; 84484; 85025; 85027; 93005; 96361; 96365; 99285

== ENCOUNTER → 2019-02-03 | Outpatient (CLI) | payer MEDICARE ==
--- NOTE | 2019-02-03 13:24 | CT ---
EXAMINATION TYPE: CT abdomen pelvis w con DATE OF EXAM: 02/03/2019 COMPARISON: 11/03/2018 HISTORY: 74-year-old male Left lower quadrant tenderness. TECHNIQUE: Contiguous axial scanning of the abdomen and pelvis following administration of 100 ml Iso neva 300 IV contrast. Delayed images through the kidneys and coronal/sagittal reconstructions perform ed. CT DLP: 1845.6 mGycm Automated exposure control for dose reduction was used. FINDINGS: Pacer leads within the right atrium and right ventricle. Heart borderline enlarged without pericardia l effusion. Strandy right basilar atelectasis. Minimal intrahepatic biliary ductal prominence along the right hepatic dome of uncertain etiology as no focal lesion is seen. Refer to axial images 5 through 8. The bile duct itself is normal caliber. P ortal venous system is patent. Tiny layering gallstones. Noted gallbladder distention. Diverticulum of the second portion of the duodenum projecting to the pancreatic head region. Adrenal glands, spleen, and pancreas appear within normal limits. Bilateral perinephric stranding is unchanged and likely were represents chronic senescent change. Sym metric uptake and excretion of contrast from both kidneys. No dilated small bowel, free fluid, or free air. A couple prominent mesenteric lymph nodes measure up to 8 mm are unchanged suggesting a chronic reactive or postinflammatory etiology. Scattered [id number] stool. Mild diverticular change along the proximal sigmoid. No pericolonic inflammatory change. Redundant sigmoid colon. Bladder is urine distended. Extensive metal hardware artifact related to the patient's bilateral hip replacements obscures adequate visualization of the pelvis. Questionable circumferential wall thicken ing of the distal rectum, refer to axial image 86. Prominent right inguinal lymph node measures 1.5 cm, unchanged from 11/03/2018. Bones: Bilateral total hip arthroplasties. Degenerated dextro convex scoliosis. Advanced degenerative disc disease visualized lower thoracic spine. IMPRESSION: 1. EXTENSIVE METAL HARDWARE ARTIFACT FROM THE PATIENT'S HIP REPLACEMENTS OBSCURING PORTIONS OF THE PE LVIS. UNABLE TO EXCLUDE ABNORMAL CIRCUMFERENTIAL WALL THICKENING OF THE DISTAL RECTUM. THIS COULD REF LECT COLITIS OR NEOPLASM. DIRECT VISUALIZATION RECOMMENDED IF ROUTINE SCREENING COLONOSCOPY IS NOT BE ING PERFORMED. 2. MINIMAL INTRAHEPATIC BILIARY DUCTAL DILATATION ALONG THE RIGHT HEPATIC DOME OF UNCERTAIN ETIOLOGY NO OBSTRUCTING MASS IS SEEN. THE BILE DUCT ITSELF IS NORMAL CALIBER. RECOMMEND FOLLOW-UP IN 3-6 MO NTHS TO REASSESS. 3. MILD PROXIMAL SIGMOID DIVERTICULOSIS. NO EVIDENCE FOR ACUTE DIVERTICULITIS. TINY LAYERING MEDINA SANTILLAN.
== END | disposition home or self-care (01) ==
LOC: RADCTMAIN 10:35
PROVIDERS: ATTEND Family Medicine
DX: K57.30 Diverticulosis of large intestine without perforation or abscess without bleeding (principal); K80.20 Calculus of gallbladder without cholecystitis without obstruction; K83.8 Other specified diseases of biliary tract; Z96.643 Presence of artificial hip joint, bilateral; I10 Essential (primary) hypertension; E78.2 Mixed hyperlipidemia; E11.9 Type 2 diabetes mellitus without complications
CPT/HCPCS: 82565; 84520; 74177; 36415; Q9967 ×2